=== PATIENT | female | born 1985 | race Two or more races ===

== ENCOUNTER 2016-03-29 08:13 | Emergency (ER) | payer SELFPAY ==
[2016-03-29 08:20] VITALS: TEMP 97.6; BMI 27.0
--- NOTE | 2016-03-29 08:48 | EDPRACDOC ---
- General Information Chief Complaint: Dyspnea/Resp distress Stated Complaint: DIFFICULTY BREATHING Time Seen by Provider: 03/29/16 08:41 Information Source: Patient, [employer] Home Medications: Home Medications Benzonatate [Tessalon Perle] 100 mg PO TID #20 capsule 03/29/16 Allergies/Adverse Reactions: Allergies Allergy/AdvReac Type Severity Reaction Status Date / Time No Known Allergies Allergy Verified 03/29/16 08:16 - History of Present Illness HPI: DRY COUGH AND SOB X 1 MONTH, WORSE SINCE FRIDAY. NO FEVER. SOME NASAL DRAINAGE. PAIN IN CHEST WITH DEEP INSPIRATION. NO RECENT SURGERIES. NOT ON CONTROL, NONSMOKER. PT HAS IUD. ED Past Medical History - History Reviewed Yes Nurses notes reviewed and agree except as marked - Patient Medical History Psychological History: Denies: Depression Surgical History: Denies: Hysterectomy - Social Medical History Smoking Status: Never smoker EDM Review of Systems - Review of Systems ROS Negative Except as Marked: Yes All systems reviewed and were negative except as marked Constitutional: No Symptoms Reported. negative: Fever Respiratory: Cough Cardiovascular: No Symptoms Reported Gastrointestinal: No Symptoms Reported Genitourinary: No Symptoms Reported Neurological: No Symptoms Reported - Physical Exam Constitutional: Alert (Awake), No apparent distress Oriented to: Time, Person, Place Last recorded Vital Signs: Last Vital Signs Temp 97.6 F 03/29/16 08:16 Pulse 86 03/29/16 08:16 Resp 18 03/29/16 08:16 BP 126/79 03/29/16 08:16 Pulse Ox 99 03/29/16 08:16 Oxygen Pulse Oxygen Saturation 99 O2 Device Room Air Oxygen Flow Rate Fraction of Inspired Oxygen ( FIO2) - HEENT Head: Normal ( normocephalic) Eye Exam: Normal (PERRL, EOMI, Sclera white) Oropharynx: Normal (Pharynx:Moist without exudate,Gums-no swelling) Nose: No Symptoms Reported (septum midline) Neck: Normal (FROM, trachea at midline) - Respiratory/Cardiovascular Respiratory: Normal - CTA (BBS clear to auscultation without adventitious sounds ) Cardiovascular: Normal (RRR without murmur, gallop or rub) - GI Auscultation: Normal (NABS) Palpation: Normal (Soft,No rebound or guarding, non distended) Tenderness: Non tender Lynch's Sign: Negative - Musculoskeletal Back: Normal (Non-Tender) Extremities: Normal (Normal tone, Pulses 2+ No cyanosis or edema, FROM) - Integumentary Skin: Normal, Warm, Dry Lymphatics: Normal (no adenopathy) - Neurologic Memory Impaired: Normal Motor Function: Normal (Normal tone, Pulses 2+ No cyanosis or edema, FROM) Cranial Nerve: Normal (CN II-X11 intact sensation, strength 5/5) Cerebellar: Normal Mood Description: Normal Perception: Normal Decision Time to Discharge: 09:46 - Departure Yes I personally saw and evaluated the patient. Disposition: Home Condition: Stable Final Diagnosis: Acute bronchitis Instructions: Acute Bronchitis (ED) Education/Counseling Given To: Patient Education/Counseling Given Regarding: Diagnosis Referrals: None,No Provider [Primary Care Provider] - One Week Prescriptions: New Benzonatate [Tessalon Perle] 100 mg PO TID #20 capsule
--- NOTE | 2016-03-29 09:25 | DIRPT ---
CLINICAL DATA: Acute shortness of breath and cough for 1 month. EXAM: CHEST 2 VIEW COMPARISON: 04/17/[address] FINDINGS: The heart size and mediastinal contours are within normal limits. Both lungs are clear. The visualized skeletal structures are unremarkable. IMPRESSION: No active cardiopulmonary disease. Electronically Signed By: Katia Scott M.D. On: 03/29/2016 09:22
[2016-03-29 10:12] VITALS: BP 111/78; PULSE 74
== END 2016-03-29 10:11 | disposition home or self-care (01) ==
LOC: ED 08:13
DX: J20.9 Acute bronchitis, unspecified (principal)
CPT/HCPCS: 71020; 99283